=== PATIENT | female | born 1970 | race Caucasian/White ===

== ENCOUNTER 2023-06-29 21:51 | Outpatient (REF) | payer OTHER, SELFPAY ==
[2023-07-06 13:07] LABS: Age Gdln ACOG Testing Note (.); HPV Aptima Negative (Negative); IGP, Aptima HPV, rfx 16/18,45 Note (.)
== END 2023-06-29 21:52 | disposition home or self-care (01) ==
LOC: LAB 21:51
PROVIDERS: Visit Provider Obstetrics & Gynecology
DX: Z01.419 Encounter for gynecological examination (general) (routine) without abnormal findings (principal)
CPT/HCPCS: 87624; G0145

== ENCOUNTER 2024-07-05 20:28 | Outpatient (REF) | payer OTHER, SELFPAY ==
--- OUTSIDE RECORDS SUMMARY | 2024-07-05 20:31 | XMS_ITS | CCD ---
Author Organization [facility] Care Team Providers Care Chocolate Dipper Name Role Phone SHAIKH Jorge VOGEL Primary Care Unavailable DR NADYA HAHN Attending Unavailable SELMA, DR COVINGTON Consulting Unavailable SELMA, DR COVINGTON Admitting Unavailable NADYA HAHN Attending Unavailable Allergies Allergy Classification Reported Allergen(s) Allergy Type Date of Onset Reaction(s) Facility (1 source) Erythromycin Drug Allergy 09-19-2014 [facility] (1 source) Lactose Drug Allergy 09-19-2014 [facility] Problems Problem Classification Problem Date Documented Date Episodic/Chronic Immunizations and screening for infectious disease (1 source) Encounter for screening for human papillomavirus (HPV); Translations: [ENC SCREENING HUMAN PAPILLOMAVIRUS] Onset: 06-26-2022 Episodic Other screening for suspected conditions (not mental disorders or infectious disease) (4 sources) Encounter for screening for malignant neoplasm of cervix; Translations: [ENC SCREENING MALIG NEOPLASM CERV] Onset: 06-23-2022 Episodic Results Test Name Value Interpretation Reference Range Facil it PAP ACOG PANEL 2: 30 to 65on 06-29-2022 . . Normal [facility] Comment on above: Result Comment: Perf ormed at: [facility] Performed By: #### 4 [id number] #### [facility] [address] [address] [address] Staci Wynn Age Gdln ACOG Testing 30-65 Normal [facility] Comment on above: Performed By: #### 4 [id number] #### [facility] [address] [address] [address] Staci Wynn DIAGNOSIS: Comment [facility] Comment on above: Result Comment: NEGA TIVE FOR INTRAEPITHELIAL LESION OR MALIGNANCY. Performed at: [facility] Performed By: #### 4 [id number] #### [facility] [address] [address] [address] Staci Wynn HPV Aptima Negative Normal Negative [facility] Comment on above: Result Comment: This nucleic acid amplification test detects fourteen high-risk HPV types (16,18,31,33,35,39,45,51,52,56,58,59,66,68) without differentiation. Performed at: =G Performed By: #### 4 [id number] #### [facility] [address] [place] [address] Dr. Staci Wynn HPV Genotype Reflex Comment Normal [facility] Comment on above: Result Comment: Crit eria not met, HPV Genotype not performed. Performed at: [facility] Performed By: #### 4 [id number] #### [facility] [address] [place] [address] Dr. Staci Wynn Methodology: Comment Normal [facility] Comment on above: Result Comment: This liquid based ThinPrep(R) pap test was screened with the use of an image guided system. Performed at: [facility] Performed By: #### 4 [id number] #### [facility] [address] [place] [address] Dr. Staci Wynn Note: Comment Normal [facility] Comment on above: Result Comment: The Pap smear is a screening test designed to aid in the detection of premalignant and malignant conditions of the uterine cervix. It is not a diagnostic procedure and should not be used as the sole means of detecting cervical cancer. Both false-positive and false-negative reports do occur. . Performed at: [facility] Performed By: #### 4 [id number] #### [facility] [address] [place] [address] Dr. Staci Wynn Performed by: Comment Normal [facility] Comment on above: Result Comment: Charles Beauchamp Jr, Data Acquisition Technician (ASCP) Performed at: [facility] Performed By: #### 4 [id number] #### [facility] [address] [place] [address] Dr. Staci Wynn Specimen adequacy: Comment Normal [facility] Comment on above: Result Comment: Sati sfactory for evaluation. No endocervical component is identified. Performed at: [facility] Performed By: #### 4 [id number] #### [facility] [address] [place] [address] Dr. Staci Wynn Coding Summary.on 07-07-2021 Coding Summary. [id number] Gh 0bWw+PGhlYWQ+SP0CTNCmV 22eqQXwaC2TF2kBPB1QHGJ ZDDLYFZ8WBX6lrAJ2RQffT 2VybiAv QusczDPyOW72EYr1MWE0wC txLHobqY6jcEEkM3o7CzBz FC57wV48GPtrZXAwOnA3Eh ZpbjsgbWFy P5bcQmOrrFGlFyx+PHRhYm xlIHdpZHRoPScxMDAlJyBz jNuyXE9nYm0dWYJpKWJvdM xhcHNlOiBj k7muSNSyBXnaRT0pxNzwF3 ZfaYS9TNYqs3r6Ds07hTL+ RJXyKEL6kDqiSQksq344Gz Msm1kbWDQ5 bAKlOSvsXBT8Y66hg0R9MO XzZNTyCXL9dMS1bG8dvDqp bhsaM8KtrJPuAgC5CHG8yF NhpW7acAjj skoqoV2gFpd+F91MGU3IOT VWAH5QHqj8U3ApFsoymNI+ KO27RVNmNC10kJBzgNYck8 vyoKn9LaSh LVMgJSB3gYdpSYikx9MeGL TvO87zeHXrv0C2PPHddDun kZBoBuTecCU9fS8kXVcpra kpu5qcykno Dgiey9shfl99zU51Z90rKV gyJRGdRUH6QBUuWWSruMzi ic0agR7oRx3+CGadw9puk6 ictXv0TyHq HJXrfbXspRhpENC9e9LlDu 06V3MhcEwoo7UnZyv2fz95 bPTnc5Y7vRD8NNfmHXJhuB 4dRNygMjB7 JDAiZmCtgS43lOBiOZvgFu 0glHgymWplYF5mBRLbhuwp PZOamA2fHJXqfHEgvSwlLC 4wNTBpbjtm k771OqSoJSM8LSOfbFBvJ3 VocY4rLmPxFUAnNQDxX6Lt mNCoKEhoS956ZSetFkJ2RT WealZqS4Fo QTAvoZzmZaA4e0A8Fs1By3 OtrrxtYWW1WKakXWRwDkZ4 QrWfAuR2H9CiJif5UEKjxP zdJV4vN8Vs CDNolyevlbzivKA2BWNsJW NbvC29hTBuWXykYq1lc3J0 m661HVChUIXncF37Sd9jpO ogMTBwdCBU mP1xecmca0xqihuyLwSnSI ErBZl4UXd4TVGtxJkeWyXp APF2HoB1KCZ0yUHhkA5dvY hqauwebJ2t Oyc+P45gxF1dWPT1DMA9cx skLYSqtfYyHA03CG32F0Pw PjwvdGFibGU+PGRpdiBzdH xaMV0dSvNt j4opo0DuMGkvT0KhWNFpJD rtKpp3DSSeEQE1pSK0mW0p DQWsMFjqu2M9aGI1I3Rgjr Tcvj9jc2fw GCFnWYczL91heSCcv4R7VA PonOU3NYRvnNumFsAexM71 Oyc+NJNpiKviy7LcIjcst7 pkm9vgrXa7 VcBoAOCrkiUijUazBTK6w6 NbEl81L83nKFgdNBVyHTOh GOVkFRZdsSnxfi5qpE1lAb 8+PGNvbCB3 nMY0wJ3nJAYvRtW5UAjmU9 57TtRkvGHwNcagt4uxp6ld sFn3RrMdXUXresIwrWqnRY U5z9VqBt05 A18lCJdyXQMvOBHnDSQrXP LmwSoeln3niM9sYz7+PC9j t7yazt24eO03gNT+PHRkIH P1oTxkWJvg DJXrlC3uZPvrChQ9JCDbXe WbyI78pDBvDEifPv5kdEaw kSuuUZ1qAAOofmmer716Sh Tsj2udLGNt yZUzYTdfPAT5G32th3G8ZE IvAYWwZYV4rWM1eS8wvZnl bjogbGVmdDsgdmVydGljYW auRLwsK732 IHRvcDsnPlBhdGllbnQgTm PcDZw6C9IqTwm5RZLypQtq LW4vqWRsZUqcXm4uuHcztO fsNJ7fDUDm luaad198QxSmh7uoJXJldE NvTGkuJBW8J17kk4R8DQFq PZThHRE2zIN5xI9oaJsqxg ogbGVmdDsg mlEyoHpiKFsePQwzZ565VE RvcDsnPkJpcnRoIERhdGU6 EJ84GI18wKHve6Q3aCM6O3 BhZGRpbmct waftfTA6YCBjSDQfhM80Yu 8qkGbsUo7pTXVlXCG2HRSl nXSbM8RoyA8mRqLmQNUrWF YnP2RaqPGs NSdvL456YSzuZzA2EFZksl OkE4LnTUSluEuaMnA6w8V8 Ut5VH5B8LR33ML16rNXaz2 H0dRG7L4Zf YIXrzujwgwtabCS0YAZpNG DxuV01Eg2pzPwbBp3lZAZl BCU9TKSneJRaC9HiqD7aNb AjMDAwMDAw K1KzuOVfHHtdZ500TTkrNw Y5RHJavzXqL6YsUOMpsTpc TpB2i9R4Wo1VWJl3RN73WE 48xJKen8Y4 sDF2D0HhPQYadctwkpcalD F3HXFrDTVdpA59Kd8nuGwu Ck3xBJHrCMU5HLTahPCeT0 XxjE6mUzUe LTOiBXMuS4HstVKkDPpjV0 91HKjpHwO1TERmczStN2Ga NYVxcKaaZaV8d0I9Aq6NKZ AuRL92TIY1 zQK4BE88KM33Q5UeSzoemF FibGU+PHRhYmxlIHdpZHRo IGcoUUKgGwLxtFdvRS3tJk 9yZGVyLWNv rMthnFRmUdRpn6nnFDIbRJ hiUX4rzIsrT9BqeZM0SDVj f2z0Uw89I04oN7TbdHO+PG JudON4rLO8 mV2oTjNzCiW1QDslU755Dn GtwCFmVvijb9xug4mdzVp9 RlN5FWXzzvBivOgqALY3b1 UmMl71L70v IHdpZHRoPSIxNSUiIHZhbG dzay0xhE7pDw0+PGNvbCB3 jTP9rV5pUxVdJyG8MKklA1 49InRvcCIv Wpnyt4gnc2lgsKn5DwJnXY KodbUrsIsnUAG1d6EcCn00 W7YzvXmtc3LuWlp5pm30yL Jen3S6uFL8 C1BxSBOlnsnkbBWmrIbyQX 2fCAVpoxztBRHypM5qYDNo J5k1DvOnIrY9VPafN9Jatg K2BYNhhGLw PXgzTDA4W00eq6N1HLCtFQ RmTZJ8kPE4hB9fpLvlytti bGVmdDsgdmVydGljYWwtYW rbS358NJPy oEwyISEehQ0bWWOvwPRkcQ hvXX6ePPFzhnlcGyLDWeRV LQRUXYVEJYNLNYJLJBI8C0 LuMqk2WTPf tLacHW4bkGEsRPhaPw0yoN illCemGL7tLDZgravqHNRf oG9dBOWatHCgkBwhJH1oVR Cutmctl700 FqQqNMW1EXHbaMJrF7OhmE 8vEsOhIBNkMKTlP9KksUDl BZjaD686DEtmYvT8KMKrpc VeI8BsXZPa nTjiGhN6i3J5Rz6pCi7rOd 7cJMauQM35HI08lNZma0C8 wWX6E7XeCTLpczatfapltW V9XXOgDXVn fB89oCJxFKgxKn1yi5X1q8 33BLAfIIJfkY26Fy6xaSwk UAGbjWTAgI9hhosje1wnwc ogIzAwMDAw KQx2BRh5KJAlfMrhNjIoPA Q6OnO2WIM3wQFauJ7heXry vqqnwI3cYwv+NDkgWWVhcn T7A4YzOry1 GLByvQtnKT8ljKIcVOlyOu 1yyTtocPpwVT4sHYViihku NFXyiN5lYMWfwXUdcOrmMV 4wNTBpbjtm d153YsMnUUE7TWXpbEDnY1 ZleY3tUcDaJEKeAVKcB6Ot mYXjPYknT499RYdmPcR9GP ZfkxMvX1Ux YSWtvUnwMiE1b8A5Is8PIL 2uxTV5C4JtDcp3XQQkkEhq BW7vfUUrNHnaQo2hgVxwjZ khRW1eELDf bqsfQPAaoR0uDLPmuTXfxH qnWU7pTZZxyktdu078IsBp GBR2CYRreIXuQ8GqsS4jDh AjMDAwMDAw N9IbaQJaUCdbG498IVqrYo N4TXQttpSjG3YfMXBfxBit ErF7t2K5Lh9SjKNrL4UzA7 u1S9WgXruv dHI+SR60RPPwEJ29pLUypK Kdg2oirUq3KcNjYFAoSEK5 jZdrFAgpn6WyDRPbH81nlC Foq9U6ABFh oYvreXEfTnNjpRY3aL3kKT dhdmcnl8gkgcgbVfvuw6kb ty65oN21A53dHHyfSRHjLX IzMCUiIHZh qGoqwy7ugX6vCd8+PGNvbC S3oFF0nG0fUsTcGnC7BNax E531AsNyqBRwQdems7mfe8 ynnQh5SoIc IZNqnjNrrVpkFKI9w5YnIa 62E28dWYzwIZPtKIXeAMXf OJKczJgigk7mbR9eGh2+PC 1zs4arkg13 gK16jYG+XUAgYNO2qSpnXH zmLDZohC0uBQujBeW6RZKw BwCgxU62bHKjYWdrHw7xaY ucfEnrFZ9h CLMjzzpcq428GoJnt4pdNP NpcQTaNVhyMLB4T06ee6G6 JZXwGVQmHPZ1aQK4wC1enY lnbjogbGVm dDsgdmVydGljYWwtYWxpZ2 61XCHubDylJhJofPRpP3or buDTFW8sLsiigZE+PHRkIH Q2rJkxLWzf UAVqpU1bPWXuG1x5NrAqSy D9OGwlD1PjxbB3DAPxlQWk MPNjqIFIuN2wvfkil9nrpr ogIzAwMDAw LBi1MEm6UEBrvVrgXxMcXL W8OwB2UVD1lOJflC3ltLfm fkiakB8lQxq+RklOOjwvdG Q+PHRkIHN0 ePyxTPadSLTyoK6tCLXtS8 s2TrXeUrP6DKedF7IfayE1 RIIkoTKvJQVlqTQNkU7llz nmu6zfprzr YiRtGZWaIKk4DCf4FISepD zjXsIjAFA5ZeV7JDC8kLHn gI5bhNcxsryjqV2nUtm+TV JOOjwvdGQ+ MRVbQNW8rVdvMZcgQJWovY 7zEERvV7c8VxQzUnI6CUnm G5XucmO7SZSnlCMxKJAszE FUvM9vuftv n9mkjqqhDgJcIYHqGCt4NT j5UEBuaQtzIySoKIB5QiS1 YZS8yWXnhE9ctMmkhbzblQ 9wOyc+UGF5 HXV5BS96VL75H3WdIwicwZ FibGU+PHRhYmxlIHdpZHRo XJjzJUByNtExiLobVT4bAx 9yZGVyLWNv bGxh (more content not included)... Normal [facility] Auto Diffon 06-29-2021 Basophils/100 WBC (Bld) 0.1 % Normal 0.0-2.0 [facility] Comment on above: Order Comment: Order Added by Discern Expert. Performed By: #### 2 [id number], [id number], [id number], [id number] #### [facility] [address] [place] [address] Basophils/Leukocytes Auto (Bld) [Pure # fraction] 0.0 E9/L Normal 0.0-0.2 [facility] Comment on above: Order Comment: Order Added by Discern Expert. Performed By: #### 2 701009, 6927813, [id number], [id number] #### [facility] [address] [place] [address] Eosinophils/100 WBC (Bld) 0.1 % Normal 0.0-8.0 [facility] Comment on above: Order Comment: Order Added by Discern Expert. Performed By: #### 2 868617, 4237328, 30002799, 8788402 #### [facility] [address] [place] [address] Eosinophils/Leukocyt es Auto (Bld) [Pure # fraction] 0.0 E9/L Normal 0.0-0.5 [facility] Comment on above: Order Comment: Order Added by Discern Expert. Performed By: #### 2 050573, 7985480, 88510313, 1544605 #### [facility] [address] [place] [address] Lymphocytes/100 WBC (Bld) 17.2 % Normal 14.0-50.0 [facility] Comment on above: Order Comment: Order Added by Discern Expert. Performed By: #### 2 476569, 2618077, 43304683, 8662512 #### [facility] [address] [place] [address] Lymphocytes/Leukocyt es Auto (Bld) [Pure # fraction] 1.0 E9/L Normal 1.0-4.0 [facility] Comment on above: Order Comment: Order Added by Discern Expert. Performed By: #### 2 037994, 0616707, 75140485, 7897332 #### [facility] [address] [place] [address]76 Monocytes/100 WBC (Bld) 6.7 % Normal 4.0-14.0 [facility] Comment on above: Order Comment: Order Added by Discern Expert. Performed By: #### 2 182258, 3432172, 35521780, 4524491 #### [facility] [address] [place] [address] Monocytes/Leukocytes Auto (Bld) [Pure # fraction] 0.4 E9/L Normal 0.2-1.0 [facility] Comment on above: Order Comment: Order Added by Discern Expert. Performed By: #### 2 845159, 9815816, 58529563, 9339142 #### [facility] [address] [place] [address]1546 Neutrophils/100 WBC (Bld) 75.9 % High 36.0-75.0 [facility] Comment on above: Order Comment: Order Added by Discern Expert. Performed By: #### 2 029341, 2721943, 13439362, 4959385 #### [facility] [address] [place] [address] Neutrophils/Leukocyt es Auto (Bld) [Pure # fraction] 4.3 E9/L Normal 2.0-7.5 [facility] Comment on above: Order Comment: Order Added by Discern Expert. Performed By: #### 2 004315, 4528531, 09263460, 0384650 #### [facility] [address] [place] [address] CBC w/ Auto Diffon 1 Erythrocyte distribution width (RBC) [Ratio] 12.3 % Normal 10.9-14.2 [facility] Comment on above: Performed By: #### 2 605808, 6330443, 88356558, 8449086 #### [facility] [address] [place] [address] Hematocrit (Bld) [Volume fraction] 47.3 % High 34.0-46.0 [facility] Comment on above: Performed By: #### 2 556207, 3273847, 61509846, 1687076 #### [facility] [address] [place] [address] 49684 Hemoglobin (Bld) [Mass/Vol] 15.9 g/dL Normal 12.0-16.0 [facility] Comment on above: Performed By: #### 2 401730, 7532423, 64994734, 7246948 #### [facility] [address] [place] [address]3029 MCH (RBC) [Entitic mass] 30.8 pg Normal 27.0-34.0 [facility] Comment on above: Performed By: #### 2 786250, 8455509, 73934725, 9520005 #### [facility] [address] [place] [address] MCHC (RBC) [Mass/Vol] 33.6 g/dL Normal 31.4-36.0 [facility] Comment on above: Performed By: #### 2 694821, 8214196, 18181082, 3386470 #### [facility] [address] [place] [address] 12264 MCV (RBC) [Entitic vol] 91.8 fL Normal 80.0-100.0 [facility] Comment on above: Performed By: #### 2 768318, 0563591, 12167856, 8067542 #### [facility] [address] [place] [address] Platelet mean volume (Bld) [Entitic vol] 7.6 fL Normal 6.4-10.8 [facility] Comment on above: Performed By: #### 2 772620, 7429353, 28818672, 0675662 #### [facility] [address] [place] [address] Platelets (Bld) [#/Vol] 291.0 E9/L Normal 150.0-500.0 [facility] Comment on above: Performed By: #### 2 532316, 6298481, 16447298, 7893436 #### [facility] [address] [place] [address] 83741 RBC (Bld) [#/Vol] 5.2 E12/L Normal 4.3-5.9 [facility] Comment on above: Performed By: #### 2 198992, 3826204, 51590195, 8626218 #### [facility] [address] [place] [address]1489 WBC corrected for nucl RBC Auto (Bld) [#/Vol] 5.6 E9/L Normal 4.0-11.0 [facility] Comment on above: Performed By: #### 2 071632, 1637892, 65796632, 2213546 #### [facility] [address] [place] [address] CMPon 06-29-2021 Albumin [Mass/Vol] 3.8 g/dL Normal 3.3-5.0 [facility] Comment on above: Performed By: #### 2 129287, 7572473, 56893921, 3546555 #### [facility] [address] [place] [address] 601[address] Albumin/Globulin (S) [Mass conc ratio] 0.9 Low 1.1-2.2 [facility] Comment on above: Performed By: #### 2 948805, 5738857, 85023026, 6897159 #### [facility] [address] [place] [address] ALP [Catalytic activity/Vol] 127 Int._Unit/L High 21-98 [facility] Comment on above: Performed By: #### 2 566215, 0731281, 17477337, 5492318 #### [facility] [address] [place] [address] ALT No additional P-5'-P [Catalytic activity/Vol] 55 Int._Unit/L High 6-46 [facility] Comment on above: Performed By: #### 2 191408, 8500865, 92424504, 7274539 #### [facility] [address] [place] [address] AST [Catalytic activity/Vol] 80 Int._Unit/L High 5-43 [facility] Comment on above: Performed By: #### 2 526842, 9661127, 81343397, 5326878 #### [facility] [address] [place] [address] Bilirubin [Mass/Vol] 0.5 mg/dL Normal 0.0-1.1 [facility] Comment on above: Performed By: #### 2 577006, 8080865, 68483911, 3119880 #### [facility] [address] [place] [address] Creatinine [Mass/Vol] 0.8 mg/dL Normal 0.5-1.3 [facility] Comment on above: Performed By: #### 2 696296, 0207026, 65620986, 9771175 #### [facility] [address] [place] [address] Globulin (S) [Mass/Vol] 4.1 g/dL High 1.4-4.0 [facility] Comment on above: Performed By: #### 2 563297, 0038075, 15989727, 9227063 #### [facility] [address] [place] [address] Protein [Mass/Vol] 7.9 g/dL High 6.0-7.8 [facility] Comment on above: Performed By: #### 2 220231, 5531479, 32720953, 0608232 #### [facility] [address] [place] [address] Urea nitrogen [Mass/Vol] 16 mg/dL Normal 5-21 [facility] Comment on above: Performed By: #### 2 272636, 6009216, 05631458, 5952180 #### [facility] [address] [place] [address] Urea nitrogen/Creatinine [Mass ratio] 20 No Units Normal 10-20 [facility] Comment on above: Performed By: #### 2 269643, 8242089, 61623516, 0970602 #### [facility] [address] [place] [address] Anion gap [Moles/Vol] 17 mmol/L High 6-16 [facility] Comment on above: Performed By: #### 2 824288, 1327538, 03059160, 1046801 #### [facility] [address] [place] [address] Calcium [Mass/Vol] 8.6 mg/dL Low 8.9-11.1 [facility] Comment on above: Performed By: #### 2 707184, 7188579, 00838509, 5816692 #### [facility] [address] [place] [address] Chloride [Moles/Vol] 97 mmol/L Low 101-111 [facility] Comment on above: Performed By: #### 2 073487, 0846100, 93007499, 4323279 #### [facility] [address] [place] [address] CO2 [Moles/Vol] 27 mmol/L Normal 21-31 [facility] Comment on above: Performed By: #### 2 368882, 9718663, 19211374, 1266503 #### [facility] [address] [place] [address] Glucose [Mass/Vol] 114 mg/dL Normal 55-199 [facility] Comment on above: Result Comment: If t his glucose result represents a fasting glucose, interpretation should refer to the following reference range: 55-99 mg/dL Performed By: #### 2 248147, 8940441, 42365616, 1964883 #### [facility] [address] [place] [address] 28275 Potassium [Moles/Vol] 3.7 mmol/L Normal 3.5-5.3 [facility] Comment on above: Performed By: #### 2 552976, 5667891, 44204280, 3810748 #### [facility] [address] [place] [address] Sodium [Moles/Vol] 137 mmol/L Normal 135-145 [facility] Comment on above: Performed By: #### 2 892497, 2432772, 43045714, 1707590 #### [facility] [address] [place] [address]20 Consent for Treatmenton Consent for Treatment [id number] 0CD:[id number] Normal [facility] Discharge Instructionson Discharge Instructions [id number] 0CD:127 Normal [facility] ED Clinical Summaryon 2020 ED Clinical Summary [address] [address] ED Clinical Summary Person Information Name: MICHELLE CERVANTES/[facility] Age: 50 Years : 1970 Sex: Female Language: Macanese PCP: SHAIKH VOGEL Marital Status: Visit Id: Visit Reason: Weakness or fatigue; Fever; Nausea; n/v, fever, fatigue Speciality: Acuity: 3 Enc Type: Emergency Med Service: Emergency Arrival: 06/29/2021 11:48:05 Discharge: 06/29/2021 14:18:00 LOS: 000 02:30 Checkin: 06/29/2021 11:48:05 Checkout: 06/29/2021 14:18:00 Dispo Type: Home (Routine DC) EVENTS: Event Name Event Status Request Date/Time Start Date/Time Complete Date/Time Arrive Complete 06/29/2021 11:48:05 06/29/2021 11:48:05 06/29/2021 11:48:05 Document Home Meds Request 06/29/2021 11:48:05 Triage Complete 06/29/2021 11:48:05 06/29/2021 11:56:55 06/29/2021 11:56:55 EKG Complete 06/29/2021 11:54:55 06/29/2021 12:54:33 Patient Care Request 06/29/2021 11:56:56 Patient Isolation Request 06/29/2021 11:56:56 Bed Assign Complete 06/29/2021 11:57:34 06/29/2021 11:57:34 06/29/2021 11:57:34 Dr Exam Complete 06/29/2021 11:57:34 06/29/2021 12:00:11 06/29/2021 12:00:11 RN Exam Request 06/29/2021 11:57:34 Patient Care Request 06/29/2021 11:57:59 Patient Isolation Request 06/29/2021 11:57:59 Registration Complete 06/29/2021 12:00:11 06/29/2021 12:10:49 06/29/2021 12:10:49 Dr Exam Complete 06/29/2021 12:01:20 06/29/2021 12:01:20 06/29/2021 12:01:20 Meds Admin Request 06/29/2021 12:07:38 Pending Labs Complete 06/29/2021 12:07:38 06/29/2021 12:51:31 Lab Complete 06/29/2021 12:07:38 06/29/2021 12:51:31 X-Ray Complete 06/29/2021 12:07:38 06/29/2021 12:35:53 06/29/2021 12:53:19 Reg Complete Request 06/29/2021 12:10:49 Reg Bed Request Complete 06/29/2021 12:10:49 06/29/2021 12:10:49 06/29/2021 12:10:49 Pending Labs Complete 06/29/2021 12:20:26 06/29/2021 12:20:26 06/29/2021 12:51:32 Lab Complete 06/29/2021 12:20:26 06/29/2021 12:20:26 06/29/2021 12:51:32 Pending Labs Complete 06/29/2021 12:28:03 06/29/2021 12:28:03 06/29/2021 12:28:09 Lab Complete 06/29/2021 12:28:03 06/29/2021 12:28:03 06/29/2021 12:28:09 Pending Labs Complete 06/29/2021 12:30:41 06/29/2021 12:30:41 06/29/2021 12:30:41 Meds Admin Complete 06/29/2021 12:44:31 06/29/2021 12:53:22 Wet Read Complete 06/29/2021 12:53:19 06/29/2021 13:40:58 06/29/2021 13:40:58 Pending Labs Complete 06/29/2021 13:01:56 06/29/2021 13:01:56 06/29/2021 13:01:57 Meds Admin Complete 06/29/2021 13:18:37 06/29/2021 13:36:42 Discharge Complete 06/29/2021 13:19:49 06/29/2021 14:21:35 06/29/2021 14:21:35 Transfer Complete 06/29/2021 14:21:35 06/29/2021 14:21:35 06/29/2021 14:21:35 ADDRESS: [address] [place] [phone] PHYS DOC NOTES: MEDICAL INFORMATION: Prescriptions Given: New Medications Printed Prescriptions ondansetron (Zofran 4 mg Tab) 1 Tablets By Mouth every 8 hours as needed Nausea/Vomiting. Refills: 0. PATIENT EDUCATION INFORMATION: Instructions: Follow up: With: Address: When: [facility]AI[facility] JASPREET [address] [place] [place] [id number] [phone] Business (1) In 3 days 07/02/2021 DIAGNOSIS: 1:COVID-19; 2:Nausea Normal [facility] ED Note-Physicianon 06-29-20 ED Note-Physician Basic Information Time Seen: Chao Gloria PA-C 06/29/2021 12:00 Chief Complaint Tested positive for covid 13 days ago weakness, nausea and vomiting. Fever and chills. 13lb weight loss since covid per pt. History of Present Illness 50-year-old female who is unvaccinated against COVID-19 presents complaining of COVID-19 symptoms for the last 13 days. She reports decreased oral intake. She reports generalized fatigue, myalgia nausea and nonproductive cough. Patient reports burning in her chest that is diffuse. She also reports that she has no appetite. She states every time she attempts to eat or drink something she becomes nauseous. She states she feels tired. She has been taking Tylenol for symptoms but nothing else. She has no history of interstitial lung disease such as asthma or COPD. She is a non-smoker. Patient denies palpitations. She denies chest pain. Review of Systems Past medical history reviewed. Past surgical history reviewed. Patient denies illicit drug use ROS: General: Yes fevers, No fatigue No weight loss, No weight gain HEENT: No changes in vision, No tearing, No hearing Loss, No sore throat CV/Pulmonary: No chest pressure, No chest pain, No palpitations, No SOB, No orthopnea, yes dry cough, No productive cough, No hemoptysis GI/: No abdominal pain, yes nausea, No vomiting, No diarrhea, No Cramping, No diarrhea, No constipation, No melena, No hematochezia, No hemorrhoid, No dysuria, No hematuria, No suprapubic pain, No genital discharge Musculoskeletal: Yes muscle aches, No joint pain, No extremity swelling, No neck pain, No back pain Skin: No rashes, No bruising, No Hives, No unusual warmth, No drainage Neuro: No headache, No dizziness, No lightheadedness, No Syncope, No slurred speech, No spinning sensation Psych: No SI, No HI, No auditory hallucinations, No visual hallucinations, No Depression, No self-harm Endocrine: No heat intolerance, No cold intolerance, No hair loss Heme: No uncontrolled bleeding, No Blood clot Hx, No easy bruising Physical Exam Vitals & Measurements T: 36.8 ?C(Oral) HR: 95(Peripheral) RR: 16 BP: 95/65 SpO2: 98% HT: 170.0 cm HT: 170 cm WT: 68.5 kg WT: 68.5 kg BMI: 23.7 HEENT: Head is normocephalic atraumatic. Hearing is grossly normal. Extraocular movements are intact grossly. Pupils equal, round,and reactive to light. Oral mucosa moist. Posterior oropharynx demonstrates no edema erythema or exudate. Nares patent bilaterally no evidence of nasal discharge. Neck: Neck is supple, nontender, no lymphadenopathy, masses, or meningismus. Heart: Regular rate and rhythm. No murmurs rubs or gallops noted. Extremities are warm and well-perfused. Capillary refill is less than 3 seconds. No evidence of edema cyanosis or pallor. Lungs: Straight inspiratory rales in all jorge particularly in the upper lobes. There is no accessory muscle use. No retractions. Abdomen: Abdomen is soft, nontender, nondistended. Bowel sounds are positive in all 4 quadrants there is no rebound or guarding. Musculoskeletal: Range of motion is intact. Patient has normal gait. No significant evidence of joint erythema . Muscles appear to be well-developed without evidence of atrophy. No evidence of joint malalignment. There is no edema, ecchymosis, cyanosis, pallor. Peripheral pulses are intact bilaterally. Neuro: Patient is alert. Speech is clear. Gait is steady. Answers questions appropriately. Movements are fluid. Cranial nerves II through XII intact grossly. Strength and sensation are symmetric throughout. Skin: Skin color is normal. Warm and dry to palpation. Texture and turgor are normal. Medical Decision Making 50-year-old female to the ED for evaluation of persistent Covid symptoms. Day 13 of symptoms. Patient is not febrile. She is not tachycardic. She is not tachypneic she is not hypoxic. She is low normotensive. She does appear to be mildly dehydrated. Labs and chest x-ray ordered. IV fluids ordered as was Tylenol. Patient has no oxygen requirement. I do not suspect PE. No indication for admission at this time. Patient was volume resuscitated with normal saline. Given Zofran for symptom relief of nausea. I discussed with patient that Covid is a viral syndrome and that given the absence of secondary bacterial infection or other clinically significant electrolyte abnormality there is no additional therapy that can be offered at this time. Patient is outside the window for treatment with monoclonal antibodies. She does not require oxygen supplementation and therefore does not require admission at this time. Patient will be discharged home with Zofran. She was advised to continue to monitor symptoms. Advised to follow-up with primary care physician. Advised to return to the ED if she should develop any new or worsening symptoms. Is hemodynamically stable at this time. Assessment/Plan 1. COVID-19 (U07.1: COVID-19) Ordered: ondansetron, 4 mg = 1 tab(s), Tab-Dis, Oral, Once, Stop date 06/29/21 13:16:00 EST, STAT, St (more content not included)... [facility] Comment on above: Result Comment: Elec tronically Signed By: Chao Gloria PA-C\.br\Date and Time Signed: 06/29/21 15:44 EST\.br\Electronically Co-Signed By: Abimael Dempsey DO\.br\Date and Time Co-Signed: 06/29/21 18:44 EST ED Patient Education Noteon 06-29-2021 ED Patient Education Note [facility] ED Patient Summaryon ED Patient Summary [place] [id number] Patient Discharge Instructions Person Information Name: MICHELLE CERVANTES Age: 50 Years Arrival Date: 06/29/2021 11:48:05 Discharge Diagnosis: 1:COVID-19; 2:Nausea Primary Care Physician: SHAIKH VOGEL Provider Information Primary Provider: Abimael Dempsey DO Advanced Digital Forensic Examiner:None The exam and treatment you received in the Emergency Department were for an urgent problem and are not intended as complete care. It is important that you follow up with a doctor, nurse practitioner, or physician?s malt specifications control assistant for ongoing care. If your symptoms become worse or you do not improve as expected and you are unable to reach your usual health care provider, you should return to the Emergency Department. We are available 24 hours a day. MICHELLE CERVANTES has been given the following list of patient education materials, prescriptions and follow-up instructions: Follow-up Instructions: With: Address: When: SHAIKH JASPREET [address] [place] [place] [phone] [id number] (1) In 3 days 07/02/2021 In the event that this physician does not participate in your insurance network, please consult with your insurance company to find a nearby participating provider. Patient Education Materials: A MESSAGE TO ALL PATIENTS REGARDING OPIOIDS PRESCRIPTION OPIOIDS: WHAT YOU NEED TO KNOW Prescription opioids can be used to help relieve [id number] pain and are often prescribed following a surgery or injury, or for certain health conditions. These medications can be an important part of the treatment but also come with serious risks. It is important to work with your healthcare provider to make sure you are getting the safest, most effective care. WHAT ARE THE RISKS AND SIDE EFFECTS OF OPIOID USE? Prescription opioids carry serious risks of addiction and overdose, especially with prolonged use. An opioid overdose, often marked by slowed breathing, can cause sudden . The use of prescription opioids can have a number of side effects as well, even when taken as directed: ? Tolerance?meaning you might need to take more of the medication for the same pain relief ? Physical dependence?meaning you have symptoms of withdrawal when a medication is stopped ? Increased sensitivity to pain ? Constipation ? Nausea, vomiting, and dry mouth ? Sleepiness and dizziness ? Confusion ? Depression ? Low levels of testosterone that can result in lower sex drive, energy, and strength ? Itching and sweating RISKS ARE GREATER WITH: ? History of drug misuse, substance use disorder, or overdose ? Mental health conditions (such as depression or anxiety) ? Sleep apnea ? Older age (65 years and older) ? Avoid alcohol while taking prescription opioids. Also, unless specifically advised by your health care provider, medications to avoid include: ? Benzodiazepines (such as Xanax or Valium) ? Muscle relaxants (such as Soma or Flexeril) ? Hypnotics (such as Ambien or Lunesta) ? Other prescription opioids KNOW YOUR OPTIONS Talk to your health care provider about ways to manage your pain that don?t involve prescription opioids. Some of these options may actually work better and have fewer risks and side effects. Options may include: ? Pain relievers such as acetaminophen, ibuprofen, and naproxen ? Some medication that are also used for depression or seizures ? Physical therapy and exercise ? Cognitive behavioral therapy, a psychological, goal-directed approach, in which patients learn how to modify physical, behavioral, and emotional triggers of pain and stress. IF YOU ARE PRESCRIBED OPIOIDS FOR PAIN: ? Never take opioids in greater amounts or more often than prescribed. ? Follow up with your primary health care provider. o Work together to create a plan on how to manage your pain. o Talk about ways to help manage your pain that don?t involve prescription opioids. o Talk about any and all concerns and side effects. ? Help prevent misuse and abuse o Never sell or share prescription opioids. o Never use another person?s prescription opioids. ? Store prescription opioids in a secure place and out of reach of others (this may include visitors, children, friends, and family). ? Safely dispose of unused prescription opioids: Find your community drug take-back program or your pharmacy mail-back program, or flush them down the toilet, following guidance from the Food and Drug Administration (www.fda.gov/Drugs/Res ourcesForYou). ? Visit www.cdc.gov/drugoverdo se to learn about the risks of opioids abuse and overdose. ? If you believe you may be struggling with addiction, tell your health critical care specialist and ask for guidance or call [facility] National Helpline at 6-793-356-HELP. v Source: Department of Health and Human Services/[place] (more content not included)... [facility] XR Chest Single Viewon 06-29 XR Chest Single View Exam Date/Time: 06/29/2021 12:53 EST Reason for Exam: Cough Report IMPRESSION: The bibasilar predominant parenchymal opacities is concerning for multifocal pneumonia, including viral etiologies. EXAMINATION: XR Chest Single View Clinical History: Cough. Comparison: None RESULT: Cardiomediastinal silhouette:The heart size is within normal limits. Lungs:There are bibasilar predominant parenchymal opacities. No significant pleural effusion or pneumothorax. FINAL REPORT Dictated: 06/29/2021 1:26 pm Yovanny REED, Stephanie V. Signed (Electronic Signature): 06/29/2021 1:26 pm Signed by: Stephanie Hairston MD, V. Transcribed by: SUNSHINE Technologist: HH [facility] eGFRon 06-29-2021 GFR/1.73 sq M.predicted among blacks MDRD (S/P/Bld) [Vol rate/Area] mL/min/{1.73_m2} Normal >=59 [facility] Comment on above: Order Comment: Order added by Discern Expert. Result Comment: eGFR is race adjusted. AA=. Performed By: #### 2 [id number] #### [facility] [address] [place] [address] GFR/1.73 sq M.predicted among non-blacks MDRD (S/P/Bld) [Vol rate/Area] mL/min/{1.73_m2} Normal >=59 [facility] Comment on above: Order Comment: Order added by Discern Expert. Result Comment: Cupola Melter Helper darrin kidney disease could be indicated at eGFR's of less than 60 mL/min/1.73m2. Kidney failure is indicated at less than 15 mL/min/1.73m2. Performed By: #### 2 [id number] #### [facility] [address] [place] [address] Encounters Encounter Date Encounter Type Care Provider Facility Start: 06-29-2023 End: 06-29-2023 ambulatory NADYA HAHN Not Available Start: 06-23-2022 End: 06-23-2022 ambulatory SHAIKH Jorge VOGEL Facility: Payers Date Payer Category Payer Unknown [id number] 1970 Unknown [id number] 1970 Unknown [id number] Summary Purpose Family History No Family History Records FoundNo Family History Records FoundNo Family History Records Found Advance Directives No Advanced Directives Records FoundNo Advanced Directives Records FoundNo Advanced Directives Records Found Additional Source Comments INFORMATION SOURCE (unrecogn ized section and content) DATE CREATED AUTHOR 10/11/2021 [facility] DATE CREATED AUTHOR AUTHOR'S ORGANIZ ATION 06/30/2022 [facility] DATE CREATED AUTHOR AUTHOR'S ORGANIZ ATION 07/01/2023 [facility] FOR RECORDS PERTAINING TO PATIENTS WHO ARE OR HAVE BEEN ENROLLED IN A CHEMICAL DEPENDENCY/SUBSTANCEABUSE PROGRAM, SOME INFORMATION MAY BE OMITTED. This clinical summary was aggregated from multiple sources. Caution should be exercised in using it in the provision of clinical care. This summary normalizes information from multiple sources, and as a consequence, information in this document may materially change the coding, format and clinical context of patient data. In addition, data may be omitted in some cases. CLINICAL DECISIONS SHOULD BE BASED ON THE PRIMARY CLINICAL RECORDS. [facility] [employer] provides no warranty or guarantee of the accuracy or completeness of information in this document.
[2024-07-12 11:10] LABS: Age Gdln ACOG Testing Note (.); HPV Aptima Negative (Negative); IGP, Aptima HPV, rfx 16/18,45 Note (.)
== END 2024-07-05 20:29 | disposition home or self-care (01) ==
LOC: LAB 20:28
PROVIDERS: Visit Provider Obstetrics & Gynecology
DX: Z01.419 Encounter for gynecological examination (general) (routine) without abnormal findings (principal)
CPT/HCPCS: 87624; 88175